=== PATIENT | male | born 1985 | race Caucasian/White ===

== ENCOUNTER 2020-05-23 06:45 | Emergency (ER) | payer OTHER ==
[~2020-05-23] VITALS: Ht 170.2 cm; Wt 72.6 kg
--- NOTE | 2020-05-23 07:41 | EKG ---
[address] [address] ELECTROCARDIOGRAM REPORT Name: CATHY OCASIO Room #: [facility]..#: [id number] Admission: Attend Phys: Discharge: Date of : 89 Report #: [id number] [facility] ED Test Date: 2020-05-23 Test Time: 07:22:31 Pat Name: CATHY OCASIO Department: Room: Gender: M Technician Anatomic Pathology: : 1985 Requested By: Edis Oakes Order Number: [id number] MD: Davonte Sims Measurements Intervals [place] Rate: 105 P: 34 VT: 163 QRS: 5 QRSD: 82 T: 28 QT: 344 QTc: 455 Interpretive Statements Sinus tachycardia Minimal ST depression, lateral leads Baseline wander in lead(s) V3 No previous ECG available for comparison Electronically Signed On 05-23-2020 7:41:45 CDT by Davonte Sims [email or web address] <ELECTRONICALLY SIGNED> By: Davonte Sims MD, [facility] 05/23/20 0741 0722 1 Davonte Sims MD, FACC /EPI
[2020-05-23 07:48] LABS: ABSOLUTE NEUTROPHILS 8.1 thou/uL (1.4-8.2); BASOPHILS 0.4 % (0.0-2.0); EOSINOPHILS 0.7 % (0.0-3.0); HEMATOCRIT 48.6 % (42.0-52.0); HEMOGLOBIN 16.6 gm/dL (14.0-18.0); LYMPHOCYTES 6.9 % (24.0-44.0); MCH 30.9 pg (26.0-34.0); MCHC 34.2 g/dL (28.0-37.0); MCV 90.4 fL (80.0-100.0); MONOCYTES 6.7 % (1.0-8.0); PLATELET COUNT 181 thou/uL (150-400); POLYS 85.3 % (36.0-66.0); RBC 5.38 mil/uL (4.50-6.00); RDW 13.1 % (10.5-14.5); WBC 9.5 thou/uL (4.0-11.0)
[2020-05-23 07:59] LABS: CALCIUM 9.5 mg/dL (8.5-10.1); CREATININE 1.5 mg/dL (0.7-1.3); POTASSIUM 3.8 mmol/L (3.5-5.1)
[2020-05-23 08:05] LABS: ALBUMIN 4.2 g/dL (3.4-5.0); TOTAL BILIRUBIN 0.4 mg/dL (0.2-1.0); TOTAL PROTEIN 7.8 g/dL (6.4-8.2)
[2020-05-23] MEDS ORDERED: PREDNISONE 20 M20 MG PO (10:09)
[2020-05-23] MEDS ORDERED: TESSALON PERLE100 MG PO (10:09)
[2020-05-23 10:29] VITALS: BP 109/86
== END 2020-05-23 10:37 | disposition home or self-care (01) ==
LOC: ER 06:45
PROVIDERS: Emergency Medicine
DX: J02.8 Acute pharyngitis due to other specified organisms (principal); B97.89 Other viral agents as the cause of diseases classified elsewhere; Z20.822 Contact with and (suspected) exposure to COVID-19

== ENCOUNTER → 2020-08-16 | Outpatient (CLI) | payer OTHER ==
[~2020-08-16] MED LIST: PREDNISONE 20 M20 MG PO; TESSALON PERLE100 MG PO
[2020-08-17 17:07] LABS: HSV 2 IgG <0.91 index (0.00-0.90)
== END ==
LOC: LAB 12:20
PROVIDERS: ATTEND Nurse Practitioner
DX: Z20.2 Contact with and (suspected) exposure to infections with a predominantly sexual mode of transmission (principal)